=== PATIENT | male | born 2000 | race Caucasian/White ===

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

== ENCOUNTER 2023-02-11 18:43 | Emergency (ER) | payer OTHER, SELFPAY ==
--- NOTE | ~2023-02-11 | XR_ITS ---
EXAMINATION: XR LUMBOSACRAL SPINE CLINICAL INFORMATION: Pain COMPARISON: None available. TECHNIQUE: Three views of the lumbosacral spine. FINDINGS: There are approximately 3 mm of retrolisthesis of L5 upon S1. Vertebral body height, alignment and mineralization are otherwise normal. No fracture is detected. There are no suspicious bone lesions. XR/XR lumbar spine 2-3V IMPRESSION: Approximately 3 mm of retrolisthesis at L5-S1.
[2023-02-11 20:13] VITALS: BP 151/80; PULSE 54; RESP 18; TEMP 36.1; O2SAT 99; BMI 24.4
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
--- NOTE | 2023-02-11 20:30 | PC.NURSE ---
vss and up to date at this time. pt comes in today d/t right lower back pain. pt states that he has had this pain for about a month. pt states exercise/medication/stretches do not provide any relief at this time. pt states he is unable to lift 20 lbs d/t pain. pt also complaining of cough/feeling sick for over a year. resting comfortably in no apparent distress. respirations even and unlabored at this time.
--- NOTE | 2023-02-11 20:33 | PC.NURSE ---
pt to xray at this time.
--- OUTSIDE RECORDS SUMMARY | 2023-02-11 20:40 | XMS_ITS | Continuity of Care Document ---
Author Name Unknown Organization [facility] Address [address] [place] [address]- Care Team Providers Care Undercollar Maker Name Role Phone Orestes VALLEJO, Rebeca Walden Primary Care Physician Encounter [facility] [place] Date(s): 07/10/21 - 08/09/21 [facility] [address] [place] [address]- Attending Physician: Jorge Luis Qureshi Admitting Physician: Jorge Luis Qureshi Referring Physician: AdmtrJorge Luis Allergies, Adverse Reactions, Alerts Substance Reaction Severity Status predniSONE Active Medications Amoxicillin (Pedi) Liquid 250, mg, By Mouth, 3 times a day, 0, 0, 0, 03/27/07 14:20:16, Print OLAF Number, ADS OPPTHS, 68, Constant Indicator Start Date: 03/27/07 Stop Date: 04/06/07 Status: Ordered hydrocortisone topical 1% cream 1, applicator, Topically, 2 times a day, 0, 0, 0, 03/27/07 14:19:39, Print OLAF Number, ADS OPPTHS, [id number], Constant Indicator Start Date: 03/27/07 Stop Date: 04/03/07 Status: Ordered Lamisil AT 1% topical cream 1, applicator, Topically, 2 times a day, 0, 0, 0, 03/27/07 14:19:23, Print OLAF Number, ADS OPPTHS, [id number], Constant Indicator Start Date: 03/27/07 Stop Date: 04/03/07 Status: Ordered No Home Meds 0, 0, 12/19/06 1:03:47, Current med (Hx) Start Date: 12/19/06 Status: Ordered Tylenol with Codeine 120 mg-12 mg/5 ml oral liquid 7.5, mL, By Mouth, Every 4 hours, Scheduled / PRN, 50, mL, 0, 0, 03/27/07 15:12:55, as needed for pain not relieved with ibuprofen , Print OLAF Number, ADS OPPTHS, 51 Start Date: 03/27/07 Status: Ordered
--- OUTSIDE RECORDS SUMMARY | 2023-02-11 20:40 | XMS_ITS | Continuity of Care Document ---
Author Name Unknown Organization [facility] Address [address] [place] [address]- Care Team Providers Care Caddy Master Name Role Phone Orestes VALLEJO, Rebeca Walden Primary Care Physician [place] [facility] [place] 07/10[place]21 - 07/17/21 [facility] [address] [place] [address]- Encounter Diagnosis Sore throat(Discharge Diagnosis) - 07/10/21 Attending Physician: Bo Raymundo DO Referring Physician: Not on Staff, Referring MD Allergies, Adverse Reactions, Alerts Substance Reaction Severity Status predniSONE Active Medications Amoxicillin (Pedi) Liquid 250, mg, By Mouth, 3 times a day, 0, 0, 0, 03/27/07 14:20:16, Print OLAF Number, ADS OPPTHS, 68, Constant Indicator Start Date: 03/27/07 Stop Date: 04/06/07 Status: Ordered amoxicillin 875 mg oral tablet 1 tablet = 875 mg, By Mouth, 2 times a day, for 10 days, # 20 tablet, 0 Refills, Acute 07/20/21 17:48:00 EDT, 07/10/21 17:48:00 EDT, Tablet, [facility]/pharmacy #[id number], Partial fill upon patient request if the prescription is for a schedule II opioid drug. Start Date: 07/10/21 Stop Date: 07/20/21 Status: Ordered hydrocortisone topical 1% cream 1, applicator, Topically, 2 times a day, 0, 0, 0, 03/27/07 14:19:39, Print OLAF Number, ADS OPPTHS, [id number], Constant Indicator Start Date: 03/27/07 Stop Date: 04/03/07 Status: Ordered Lamisil AT 1% topical cream 1, applicator, Topically, 2 times a day, 0, 0, 0, 03/27/07 14:19:23, Print OLAF Number, ADS OPPTHS, [id number], Constant Indicator Start Date: 03/27/07 Stop Date: [...] OPPTHS, 51 Start Date: 03/27/07 Status: Ordered Problem List Diagnosis Diagnosis Type Effective Dates Health Status Clini greg Service Informant Sore throat Discharge Diagnosis 07/10/21
--- NOTE | 2023-02-11 20:51 | PC.NURSE ---
swabs obtained by tech.
[2023-02-11 21:31] LABS: Influenza A PCR NEGATIVE (Negative); Influenza B PCR NEGATIVE (Negative); Resp Syncy Virus RNA Qual PCR NEGATIVE (Negative); SARS COV2 PCR INHOUSE NEGATIVE (Negative)
[2023-02-11 22:33] LABS: MANUAL DIFF FLAG NO
[2023-02-11 22:34] LABS: Basophils Absolute Auto 0.1 X10*3/uL (0.0-0.2); Basophils Percent Auto 0.7 % (0-2); Eosinophils Absolute Auto 0.3 X10*3/uL (0.0-0.4); Hematocrit 47.1 % (42.0-52.0); Hemoglobin 16.5 g/dl (14.0-18.0); Imm Gran Abs Auto 0.02 X10*3/uL (0.00-0.03); Imm Gran Pct Auto 0.2 % (0.0-0.4); Lymphocytes Absolute Auto 2.8 X10*3/uL (1.2-4.9); Mean Corpuscular Hemoglobin 29.5 pg (27.0-33.0); Mean Corpuscular Volume 84.3 fL (80.0-98.0); Mean Platelet Volume 9.3 fL (9.4-12.4); Monocytes Percent Auto 9.2 % (2-11); Neutrophils Percent Auto 61.9 % (45-73); Platelet Count 243 X10*3/uL (160-400); Red Blood Count 5.59 X10*6/uL (4.60-5.80); Red Cell Distribution Width 12.1 % (11.0-16.0); White Blood Count 11.3 X10*3/uL (4.8-10.8)
[2023-02-11 22:35] LABS: Appearance Urine Clear; Color Urine Yellow; Glucose Urine UA Negative (Negative); Leukocyte Esterase Urine Negative (Negative); Nitrite Urine Negative (Negative); PH 7.5 (5.0-9.0); Specific Gravity - Urine 1.015 (1.005-1.025); Urine Blood Negative (Negative); Urine Ketones Negative (Negative); Urine Protein Negative (Neg-Trace)
[2023-02-11 22:47] LABS: Alanine Aminotransferase 14 U/L (0-40); Albumin Level 4.6 g/dL (3.5-5.0); Alkaline Phosphatase 74 U/L (39-117); Anion Gap 11 (12-20); Aspartate Amino Transferase 20 U/L (5-37); Bilirubin Total 0.8 mg/dL (0.0-1.0); Blood Urea Nitrogen 10 mg/dL (9-16); Calcium 9.7 mg/dL (8.4-10.2); Carbon Dioxide 28 mmol/L (22-29); Chloride 106 mmol/L (96-108); Creatinine Clr Calc Pharmacy 123.1; Estimated Glomerular Filt Rate > 60; Glucose Random 93 mg/dL (60-115); Lipase 8 U/L (8-78); Potassium 4.2 mmol/L (3.3-5.1); Sodium 141 mmol/L (135-145); Total Protein 7.2 g/dL (6.5-8.0)
== END 2023-02-11 23:26 | disposition home or self-care (01) ==
PROVIDERS: Emergency Provider Emergency Medicine Emergency Medical Services
DX: J30.9 Allergic rhinitis, unspecified (principal); M54.50 Low back pain, unspecified; R05.9 Cough, unspecified; J34.89 Other specified disorders of nose and nasal sinuses; Z20.822 Contact with and (suspected) exposure to COVID-19; Z20.828 Contact with and (suspected) exposure to other viral communicable diseases; Z79.899 Other long term (current) drug therapy
CPT/HCPCS: 0241U; 36415; 72100; 80053; 81003; 83690; 85025; 99283; 99284

== ENCOUNTER 2024-10-26 21:41 | Emergency (ER) | payer OTHER, SELFPAY ==
--- OUTSIDE RECORDS SUMMARY | 2024-06-20 11:02 | XMS_ITS | Encounter Summary ---
Author Organization [facility] Address [address] [place] [address] [place] [id number] Phone Care Team Providers Care Machine Tool Dresser Name Role Phone Theresa Arciniega MD Primary Care Provid er Encounter Details Date Type Department Care Team (Late st Contact Info) Description 06/20/2024 11:02 AM EDT Hospital Encounter [facility] [address] [place] [id number] Margie Calvin FNP [address] [place] [id number] [email or web address] Social History Tobacco Use Types Packs/Day Years Used Date Smoking Tobacco: Never Smokeless Tobacco: Never Alcohol Use Standard Drinks/Week Comments Yes 0 (1 standard drink = 0.6 oz pur e alcohol) 1x per week Education Answer Date Recorded Are you interested in more education? Not on megha e 08/03/2022 Are you concerned about learning? Not on file 08/03/2022 No 08/03/2022 No 08/03/2022 Digital Access Answer Date Recorded No 09/01/2022 No 09/01/2022 Reliable internet access at home? Not on file 09/01/2022 Device with a working camera? Not on file Intimate Partner Violence Answer Date R ecorded Are you denied basic needs s uch as food, clothing, or medical care? No 03/30/2024 In the past 12 months have y ou been in a relationship with a person who hurts, threatens, or tries to control you? No 03/30/2024 Are you denied basic needs s uch as food, clothing, or medical care? No 03/30/2024 In the past 12 months have y ou been in a relationship with a person who hurts, threatens, or tries to control you? No 03/30/2024 Sex and Gender Information Value Date Recorded Sex Assigned at Male 11/21/2020 11:43 PM EDT Legal Sex Male 6:47 PM EST Gender Identity Male 11/21/2020 11:43 PM EDT Sexual Orientation Straight 11/21/2020 11 :43 PM EDT documented as of this encounter Plan of Treatment Not on file documented as of this encounter Procedures Procedure Name Priority Date/Time Associated Diagnosis Comments XR LUMBOSACRAL SPINE 2-3 VIEWS Urgent/patient waiting 06/20/2024 11:11 AM EDT Fall from snowboard, initial encounter documented in this encounter Results * XR LUMBOSACRAL SPINE 2-3 VIEWS (06/20/2024 11:11 AM EDT) Anatomical Region Laterality Modality L-spine Computed Radiogr aphy 06/20/2024 11:1 9 AM EDT Impressions 06/20/2024 11:20 AM EDT No definite evidence of acute fracture or traumatic malalignment of the lumbar spine. Narrative 06/20/2024 11:20 AM EDT XR LUMBOSACRAL SPINE 2-3 VIEWS Referring clinician's provided indication for this examination in [facility]: S/P Fall; fell snowboarding. SIGNIFICANT SWELLING OVER LUMBAR SPINE COMPARISON: None FINDINGS: There are 5 nonrib-bearing lumbar-type vertebral bodies. Vertebral heights and alignment are maintained. Mild levoscoliosis. Procedure Note Aarti Jesus MD - 06/20/2024 XR LUMBOSACRAL SPINE 2-3 VIEWS Referring clinician's provided indication for this examination in [facility]:S/P Fall; fell snowboarding. SIGNIFICANT SWELLING OVER LUMBAR SPINE COMPARISON: None FINDINGS: There are 5 nonrib-bearing lumbar-type vertebral bodies. Vertebral heightsand alignment are maintained. Mild levoscoliosis. IMPRESSION: No definite evidence of acute fracture or traumatic malalignment of thelumbar spine. Margie Calvin COAGULATION OPERATOR IMG XR SPINE Final Resul t documented in this encounter Visit Diagnoses Not on filedocumented in this encounter Care Teams Machine Tool Dresser Relationship Specialty Start Date End Date Theresa Arciniega MD [address] [place] [address] KYREE Renee [id number] PCP - General Pediatrics 02/12/19 documented as of this encounter Additional Source Comments The information contained in this document represents components of the legal health record. It is not the complete legal health record.[facility]
[2024-10-26 21:50] VITALS: BP 127/52; PULSE 56; RESP 18; TEMP 36.6; O2SAT 99; BMI 24.9
[2024-10-27] VITALS: BP 125/73; PULSE 63; RESP 16; TEMP 36.4; O2SAT 100
--- NOTE | 2024-10-27 02:51 | ED.WOUNDLAC ---
HPI - Wound/Laceration General Chief Complaint: Wound/Laceration Stated Complaint: nail stuck in left foot Time Seen by Provider: 10/27/24 02:44 Source: patient Mode of arrival: ambulatory Limitations: no limitations History of Present Illness ED Provider: Dr. Nory Perez HPI narrative: Patient comes to the emergency room complaining of a puncture wound to the left heel. Patient states that earlier today he was swimming in a pond, stepped into a nail. Patient was able to pull the nail out. Patient states that he does not believe that he is up-to-date with his tetanus shot. Patient denies any fever chills. Denies any other injuries. Related Data Previous Rx's ?Medication ?Instructions ?Recorded amoxicillin 875 mg-potassium 1 tab PO Q12H 10 days #20 tabs 10/30/20 clavulanate 125 mg tablet (Augmentin) cyclobenzaprine 10 mg tablet 10 mg PO TID PRN pain, muscle 02/11/23 spasm #15 tabs levofloxacin 500 mg tablet 500 mg PO DAILY #4 tabs 10/27/24 Allergies Allergy/AdvReac Type Severity Reaction Status Date / Time penicillin G AdvReac Hives Verified 10/26/24 21:50 Review of Systems Review of Systems: Constitutional : No Weight loss, No Fever, No Chills, No Night Sweats, No Fatigue, No Malaise ENT/Mouth : No Hearing loss, No Ear Pain, No Nasal Congestion, No Sinus Pain, No Hoarseness, No sore throat, No Rhinorrhea, No Swallowing Difficulty Eyes: No Eye Pain, No Swelling, No Redness, No Foreign Body, No Discharge, No Vision Changes Cardiovascular : No Chest Pain, No SOB, No Dyspnea on Exertion, No Orthopnea, No Edema, No Palpitations Respiratory : No Cough, No Sputum, No Wheezing, No Smoke Exposure, No Dyspnea Gastrointestinal : No Nausea, No Vomiting, No Diarrhea, No Constipation, No abdominal Pain, No Hematochezia, No Melena Genitourinary : no irregular bleeding, No Dysuria, No Urinary Frequency, No Hematuria, No Urinary Incontinence, No Urgency, No Flank Pain, No Urinary Flow Changes, No Hesitancy Musculoskeletal : No joint pain, No Myalgias, No Joint Swelling Skin : Complaining of a foot Neuro : No Weakness, No Numbness, No Paresthesias, No Loss of Consciousness, No Dizziness, No Headache Psych : No Anxiety/Panic, No Depression, No SI/HI/AH/VH, No Social Issues, Heme/Lymph: No Bruising, No Bleeding,No Lymphadenopathy Endocrine : No Polyuria, No Polydipsia, No Temperature Intolerance COUNTS INCLUDE 234 BEDS AT THE [facility] Past Medical History Medical History No known health problems Social History Social History Alcohol intake: current Alcohol intake frequency: holidays/special occasions only Advance Directives: No Advance Directives Information Provided: Yes Do you have a plan to hurt others: No Plan Physical Exam Exam: Exam: Appearance: Alert. Oriented X3. No acute distress. Eyes: Pupils equal, round and reactive to light. ENT: Pharynx normal. Neck: Normal inspection. Neck supple. No lymph nodes noted. No crepitus CVS: Normal heart rate and rhythm. Pulses normal. Normal S1 and S2 Respiratory: No respiratory distress. Breath sounds normal. No Wheezing. No rales Abdomen: Soft and nontender. No rigidity. No distention. Skin: Skin warm and dry. Normal skin color. Normal skin turgor. There is a small puncture wound to the heel, no signs of infection. Extremities: No lower extremity edema. No Lacerations. No Rash Neuro: Oriented X 3. No motor deficit. No sensory deficit. Moving all extremities. No slurred speech. CN 2 through 12 grossly intact Psych: calm, cooperative, normal affect Vital Signs: Vital Signs: Last Vital Signs Temp 97.9 F 10/27/24 03:02 Pulse 61 10/27/24 03:02 Resp 16 10/27/24 03:02 BP 122/62 10/27/24 03:02 Pulse Ox 99 10/27/24 03:02 O2 Del Method Room Air 10/27/24 03:02 BMI result Body Mass Index 24.9 Medications Administered Discontinued Medications Generic Name Dose Route Start Last Admin Trade Name Freq PRN Reason Stop Dose Admin Diphtheria/Tetanus/Acell Pertussis 0.5 ml 10/27/24 02:48 10/27/24 03:00 Diphth,Pertus(Acell),Tet Adult 0.5 Ml Syringe IM 10/27/24 02:49 0.5 ml .ONCE ONE Administration Levofloxacin 500 mg 10/27/24 02:48 10/27/24 02:56 Levofloxacin 500 Mg Tablet PO 10/27/24 02:49 500 mg ONCE ONE Administration Medical Decision Making Medical Decision Making [facility] Narrative: Patient was given p.o. levofloxacin and Tdap Differential Diagnosis Differential Diagnoses: The differential diagnosis associated with the presentation includes (Cellulitis, puncture wound) Discharge Plan Discharge Clinical Impression: Puncture wound of heel Patient Disposition: Home, Self-Care Instructions: Puncture Wound in the Foot (ED) Additional Instructions: Please follow-up with your primary care physician tomorrow. If you have any worsening or new symptoms, please return to the emergency room or call 911 Prescriptions: New levofloxacin 500 mg tablet 500 mg PO DAILY Qty: 4 0RF No Action amoxicillin-pot clavulanate [Augmentin] 875-125 mg tablet 1 tab PO Q12H 10 Days Qty: 20 0RF cyclobenzaprine 10 mg tablet 10 mg PO TID PRN (Reason: pain, muscle spasm) Qty: 15 0RF Interventions: ED Discharge Assessment Last Done: 10/27/24 03:02 Discharge Date/Time: 10/27/24 03:04 Print Language: Green[place]ic
[2024-10-27] MEDS: Diphth,Pertus(ACell),Tet Adult 0.5 ML SYRINGE IM (03:00)
[2024-10-27 03:02] VITALS: BP 122/62; PULSE 61; RESP 16; TEMP 36.6; O2SAT 99
== END 2024-10-27 03:04 | disposition home or self-care (01) ==
PROVIDERS: Emergency Provider Emergency Medicine
DX: S91.332A Puncture wound without foreign body, left foot, initial encounter (principal); W45.0XXA Nail entering through skin, initial encounter; Y93.19 Activity, other involving water and watercraft; Y92.828 Other wilderness area as the place of occurrence of the external cause; Y99.8 Other external cause status; Z23 Encounter for immunization
CPT/HCPCS: 90471; 90715; 99282; 99284